=== PATIENT | female | born 1970 | race Hispanic/Latino ===

== ENCOUNTER 2017-07-26 20:37 | Emergency (ER) | payer MEDICARE ==
[2017-07-26] MEDS ORDERED: METOCLOPRAMIDE 10 MG/2 ML VIAL ONE (23:01)
[2017-07-26] MEDS ORDERED: ONDANSETRON HCL 4 MG/2 ML VIAL ONE (23:02)
[2017-07-26] MEDS ORDERED: DiphenhydrAMINE HCL 50 MG/ML VIAL ONE (23:02)
[2017-07-26 23:11] LABS: BASOPHILS % (AUTO) 0.4 % (0.0-5.0); EOSINOPHILS % (AUTO) 2.6 % (0.0-8.0); HEMATOCRIT 40.6 % (36-48); LYMPHOCYTES % (AUTO) 35.4 % (21.0-51.0); MEAN CORPUSCULAR HEMOGLOBIN 30.7 pg (27.0-33.0); MEAN CORPUSCULAR HGB CONC 34.4 g/dL (32.0-36.0); MEAN CORPUSCULAR VOLUME 89.3 fL (79-99); MONOCYTES % (AUTO) 7.8 % (3.0-13.0); NEUTROPHILS % (AUTO) 53.8 % (40.0-77.0); NUCLEATED RED BLOOD CELLS 0.1 % (0.0-0.19); PLATELET COUNT (AUTO) 296 K/uL (130-400); RED BLOOD CELL COUNT(AUTO) 4.55 MIL/uL (4.00-5.50); RED CELL DISTRIBUTION WIDTH 13.2 % (11.0-15.5)
[2017-07-26 23:15] LABS: APPEARANCE,URINE Clear (CLEAR); BILIRUBIN,URINE Negative (NEGATIVE); COLOR,URINE Yellow (YELLOW); GLUCOSE, URINE (UA) Negative (NEGATIVE); KETONES,URINE Negative (NEGATIVE); LEUKOCYTE ESTERASE ,URINE Negative (NEGATIVE); NITRATE,URINE Negative (NEGATIVE); OCCULT BLOOD,URINE Small (NEGATIVE); PROTEIN,URINE Negative (NEGATIVE); UROBILINOGEN,URINE 0.2 mg/dL (0.2-1.0)
[2017-07-26 23:18] LABS: CREATININE 0.8 mg/dL (0.5-1.5); POTASSIUM 3.9 mmol/L (3.5-5.1)
[2017-07-26 23:31] LABS: BACTERIA,URINE Rare /HPF (None Seen); MUCUS,URINE Few LPF (None Seen); RBC,URINE 0-1 /HPF (0-1); SQUAMOUS EPITHELIAL CELL,UR Moderate /LPF (0-2); WBC,URINE 0-1 /HPF (0-1)
== END 2017-07-27 00:25 | disposition home or self-care (01) ==
LOC: EDH 20:37
DX: G44.209 Tension-type headache, unspecified, not intractable (principal); R42 Dizziness and giddiness; I10 Essential (primary) hypertension; E11.9 Type 2 diabetes mellitus without complications
CPT/HCPCS: 36415; 70450; 80048; 81001; 84703; 85025; 96374; 96375; 99285; J1200; J2405; J2765

== ENCOUNTER 2018-10-25 14:15 | Inpatient (IN) | payer MEDICARE ==
[~2018-10-25] VITALS: Ht 170.2 cm; Wt 128.0 kg
[2018-10-25 12:45] VITALS: BP 149/70
[2018-10-25 13:22] LABS: BASOPHILS % (AUTO) 0.5 % (0.0-5.0); EOSINOPHILS % (AUTO) 1.1 % (0.0-8.0); HEMATOCRIT 43.5 % (36-48); LYMPHOCYTES % (AUTO) 30.5 % (21.0-51.0); MEAN CORPUSCULAR HEMOGLOBIN 30.3 pg (27.0-33.0); MEAN CORPUSCULAR HGB CONC 32.8 g/dL (32.0-36.0); MEAN CORPUSCULAR VOLUME 92.3 fL (79-99); MONOCYTES % (AUTO) 6.5 % (3.0-13.0); NEUTROPHILS % (AUTO) 61.4 % (40.0-77.0); PLATELET COUNT (AUTO) 284 K/uL (130-400); RED BLOOD CELL COUNT(AUTO) 4.72 MIL/uL (4.00-5.50); RED CELL DISTRIBUTION WIDTH 13.7 % (11.0-15.5); WHITE BLOOD COUNT (AUTO) 8.9 K/uL (4.8-10.8)
[2018-10-25 13:33] LABS: CREATININE 0.7 mg/dL (0.5-1.5); POTASSIUM 4.1 mmol/L (3.5-5.1)
[2018-10-25 13:36] LABS: INR 0.89 (0.85-1.15); PARTIAL THROMBOPLASTIN TIME 26.6 SEC (26.3-35.5); PROTHROMBIN TIME 9.4 SEC (9.6-11.6)
[2018-10-25 13:55] LABS: APPEARANCE,URINE Clear (CLEAR); BILIRUBIN,URINE Negative (NEGATIVE); COLOR,URINE Yellow (YELLOW); GLUCOSE, URINE (UA) Negative (NEGATIVE); KETONES,URINE Negative (NEGATIVE); LEUKOCYTE ESTERASE ,URINE Negative (NEGATIVE); NITRATE,URINE Negative (NEGATIVE); OCCULT BLOOD,URINE Small (NEGATIVE); PH,URINE 5.5 (5.0-8.0); PROTEIN,URINE Negative (NEGATIVE); UROBILINOGEN,URINE 0.2 mg/dL (0.2-1.0)
[2018-10-25 14:03] LABS: RBC,URINE 0-1 /HPF (0-1); WBC,URINE 0-1 /HPF (0-1)
[2018-10-25 14:04] LABS: BACTERIA,URINE Few /HPF (None Seen)
[~2018-10-25 14:15] MED LIST: ALBU8.5H8 IH; CALC-1009 PO; DEXAMETHASONE PO; FLUT15.88 NS; METF-446 PO; NORG1TAB65 PO; OMEG1CAP83 PO; SIMV20TA6 PO
--- NOTE | 2018-10-25 16:39 | NUR ---
UA INFORMED DR. SHAE OF ABNORMAL UA. NO ORDERS RECEIVED. PROCEED WITH PLANNED PROCEDURE.
[2018-10-26] VITALS (22 sets, daily range): BP systolic 124–153; BP diastolic 58–102
[2018-10-26] MEDS ORDERED: CEFAZOLIN 3GM /D5W 100ML 100 ML IV PRN (08:00)
[2018-10-26] MEDS ORDERED: SODIUM CHLORIDE 0.9% 1000ML 1,000 ML IV ONE (09:50)
[2018-10-26] MEDS: CEFAZOLIN SODIUM 1 GM VIAL ONE ×2 (10:13→12:00)
[2018-10-26] MEDS ORDERED: METOCLOPRAMIDE 10 MG/2 ML VIAL ONE (10:36)
[2018-10-26] MEDS ORDERED: CELECOXIB 200 MG CAP ONE (10:37)
[2018-10-26] MEDS ORDERED: KETOROLAC TROMETHAMINE 15MG/ML ONE (10:37)
[2018-10-26] MEDS ORDERED: ACETAMINOPHEN EXTRA STRENGTH 500 MG TABLET ONE (10:37)
[2018-10-26] MEDS ORDERED: OXYCODONE HCL 10 MG TAB.SR.12H PO ONE (10:37)
[2018-10-26] MEDS ORDERED: FENTANYL CITRATE PF 50 MCG/1 ML 2ML VIAL ONE ×2 (11:13→14:10)
[2018-10-26] MEDS ORDERED: ROCURONIUM 10MG/1ML SYR 10 MG/ML ML ONE ×2 (11:13→11:32)
[2018-10-26] MEDS ORDERED: PROPOFOL 10 MG/ML 20ML VIAL IV ONE ×2 (11:13→11:32)
[2018-10-26] MEDS ORDERED: SUCCINYLCHOLINE 200MG/10ML SYR ONE (11:13)
[2018-10-26] MEDS ORDERED: LIDOCAINE PF 2% 5ML ABBOJECT ONE (11:13)
[2018-10-26] MEDS ORDERED: ROPIVACAINE 0.5% 5MG/ML 30ML IJ ONE (11:29)
[2018-10-26] MEDS ORDERED: MIDAZOLAM HCL 1 MG/ML 2ML VIAL ONE (11:34)
[2018-10-26] MEDS ORDERED: CEFAZOLIN SODIUM 1 GM VIAL ONE (11:43)
[2018-10-26] MEDS ORDERED: TRANEXAMIC ACID 1000MG/10ML IV ONE ×2 (11:43→14:40)
[2018-10-26] MEDS ORDERED: EPHEDRINE SULFATE 50 MG/ML AMPULE ONE (12:07)
[2018-10-26] MEDS ORDERED: GLYCOPYRROLATE 1 MG/5 ML SYRINGE ONE (13:49)
[2018-10-26] MEDS ORDERED: NEOSTIGMINE 5MG/5ML SYR IV ONE (13:49)
[2018-10-26] MEDS ORDERED: KETOROLAC TROMETHAMINE 30MG/ML ONE (13:52)
[2018-10-26] MEDS ORDERED: ONDANSETRON HCL 4 MG/2 ML VIAL ONE (13:52)
[2018-10-26] MEDS ORDERED: TRAMADOL HCL 50 MG TABLET PO PRN (14:15)
[2018-10-26] MEDS ORDERED: POTASSIUM CHLORIDE 20MEQ/100ML 100 ML IV PRN (14:15)
[2018-10-26] MEDS ORDERED: DiphenhydrAMINE HCL 50 MG/ML VIAL IVP PRN (14:15)
[2018-10-26] MEDS ORDERED: POTASSIUM CHLORIDE 10% ELIXIR 20 MEQ/15 ML UDCUP PO PRN (14:15)
[2018-10-26] MEDS ORDERED: POTASSIUM CHLORIDE 20 MEQ ERTAB PO PRN (14:15)
[2018-10-26] MEDS ORDERED: FERROUS FUMARATE 324 MG TABLET PO PRN (14:15)
[2018-10-26] MEDS ORDERED: TEMAZEPAM 15 MG CAPSULE PO PRN (14:15)
[2018-10-26] MEDS ORDERED: CALCIUM CARBONATE 500 MG TABLET PO PRN (14:15)
[2018-10-26] MEDS ORDERED: ONDANSETRON HCL 4 MG/2 ML VIAL IVP PRN (14:15)
[2018-10-26] MEDS ORDERED: LIDOCAINE HCL-MPF 1% 2ML VIAL IVP PRN (14:15)
[2018-10-26] MEDS: OXYCODONE HCL 5 MG TAB PO PRN (15:51)
[2018-10-26] MEDS: ACETAMINOPHEN EXTRA STRENGTH 500 MG TABLET PO SCH ×2 (15:51→23:01)
[2018-10-26] MEDS: SODIUM CHLORIDE 0.9% 1000ML 1,000 ML IV SCH (16:00)
[2018-10-26] MEDS: INSULIN HUMULIN R 100 UNIT/ML 3ML SQ SCH ×2 (16:30→21:00)
--- NOTE | 2018-10-26 16:43 | NUR ---
DCP CM met with pt and family, discussed dc plans. Pt is deaf and mute, family uses sign language to communicate w/pt. Pt is semi-independent prior to surgery, lives at home with sister and mother. Has a shower chair, cane, and provider. Denies any other equipments/services. Feels safe to go back home, sister assist with transporation and needs as necessary. Pt agreeable for short term placement rehab. Sister signed [facility] for [facility], states will think about SNF if denied. Faxed order and clinicals to [facility], received confirmation. DC plan to IRU vs SNF. CM to cont to follow up. Addendum: 10/26/18 at 1647 by BRIGHT FARMER LVN CM Amended: Links added.
--- NOTE | 2018-10-26 16:48 | NUR ---
CM Note: Jg pending approval for standard walker no wheels and 3 in 1 chair Spoke to Art w/[facility], received request. Aware pt will dc to IRU/SNF first prior to home. Per Art will coordinate w/[facility] once pt closer to dc from facility. Primary nurse aware. CM to cont to follow up.
--- NOTE | 2018-10-26 16:49 | NUR ---
CM Note: [facility] pending acceptance Spoke to Brianna w/[facility] , received order and clinicals, will come eval pt. Pt pending acceptance. MOT semi-filled pending to be completed, flagged in chart. EMS filled out, pending to be faxed w/current date, primary nurse to call [facility] once MD cleared pt for DC. Primary nurse aware. CM to cont to follow up.
[2018-10-26] MEDS ORDERED: SUB TO ALBUTEROL 2.5MG/3ML NEBULES PER P&T IH PRN (18:30)
[2018-10-26] MEDS ORDERED: PREGABALIN 25 MG CAP ONE (19:24)
[2018-10-26] MEDS: CELECOXIB 200 MG CAP PO SCH (19:28)
[2018-10-26] MEDS: PREGABALIN 25 MG CAP PO SCH (19:28)
[2018-10-26] MEDS: CEFAZOLIN 3GM /D5W 100ML 100 ML IV SCH (19:28)
[2018-10-26] MEDS: SIMVASTATIN 20 MG TABLET PO SCH (19:28)
[2018-10-26] MEDS: FAMOTIDINE 20MG TAB 20 MG TAB PO SCH (19:28)
[2018-10-26] MEDS ORDERED: NORGESTIMATE ETHINYL ESTRADIOL PO SCH (21:00)
[2018-10-27] MEDS: CEFAZOLIN 3GM /D5W 100ML 100 ML IV SCH (02:50)
[2018-10-27] MEDS: OXYCODONE HCL 5 MG TAB PO PRN ×3 (02:51→13:41)
[2018-10-27] MEDS: SODIUM CHLORIDE 0.9% 1000ML 1,000 ML IV SCH ×2 (02:53→10:05)
[2018-10-27 03:32] VITALS: BP 125/68
[2018-10-27 05:01] LABS: HEMATOCRIT 36.6 % (36-48); MEAN CORPUSCULAR HEMOGLOBIN 30.1 pg (27.0-33.0); MEAN CORPUSCULAR HGB CONC 32.6 g/dL (32.0-36.0); MEAN CORPUSCULAR VOLUME 92.3 fL (79-99); PLATELET COUNT (AUTO) 228 K/uL (130-400); RED BLOOD CELL COUNT(AUTO) 3.96 MIL/uL (4.00-5.50); RED CELL DISTRIBUTION WIDTH 13.6 % (11.0-15.5); WHITE BLOOD COUNT (AUTO) 9.8 K/uL (4.8-10.8)
[2018-10-27 05:09] LABS: CREATININE 0.7 mg/dL (0.5-1.5); POTASSIUM 4.1 mmol/L (3.5-5.1)
[2018-10-27] MEDS: INSULIN HUMULIN R 100 UNIT/ML 3ML SQ SCH ×4 (06:05→20:29)
[2018-10-27] MEDS: ACETAMINOPHEN EXTRA STRENGTH 500 MG TABLET PO SCH ×3 (06:07→22:09)
[2018-10-27] MEDS: POLYETHYLENE GLYCOL 3350 17 GM POWD.PACK PO SCH (08:13)
[2018-10-27] MEDS: FAMOTIDINE 20MG TAB 20 MG TAB PO SCH ×2 (08:14→19:49)
[2018-10-27] MEDS: PREGABALIN 25 MG CAP PO SCH ×2 (08:14→19:49)
[2018-10-27] MEDS: CELECOXIB 200 MG CAP PO SCH ×2 (08:15→19:49)
[2018-10-27] MEDS: CALCIUM 600 + VITAMIN D 400 TABLET PO SCH (08:16)
[2018-10-27] MEDS: METFORMIN HCL 500 MG TABLET PO SCH ×2 (08:16→17:06)
[2018-10-27] MEDS: APIXABAN 2.5 MG TABLET PO SCH ×2 (08:16→19:49)
[2018-10-27] MEDS: FISH OIL 1000 MG/CAP PO SCH (08:16)
[2018-10-27] MEDS ORDERED: DEXAMETHASONE PO SCH (09:00)
[2018-10-27] MEDS: FLUTICASONE PROPIONATE 50MCG/SPRAY 16 GM BOTTLE NS SCH (09:00)
[2018-10-27] MEDS: TAMSULOSIN HCL 0.4 MG CAP.ER.24H PO SCH (09:00)
--- NOTE | 2018-10-27 10:23 | NUR ---
CM Not: [facility] Spoke to Brianna w/[facility]. Pt has acceptance. MOT filled out. EMS arranged and faxed. Primary nurse made aware. Pending MD clearance. CM to cont to follow up.
[2018-10-27 11:49] VITALS: BP 141/78
[2018-10-27 16:00] VITALS: BP 146/75
[2018-10-27] MEDS: KETOROLAC TROMETHAMINE 15MG/ML IV PRN (17:06)
[2018-10-27] MEDS: SIMVASTATIN 20 MG TABLET PO SCH (19:49)
[2018-10-27 19:50] VITALS: BP 150/60
--- NOTE | 2018-10-27 20:00 | NUR ---
assessment assessment performed with family and interpretor at bedside, dressing left knee with irving wrap, remove ble teds and keep scds in place, teach patient and plan of care , both verbalize understanding via teach back
[2018-10-27 23:48] VITALS: BP 151/76
[2018-10-28 03:50] VITALS: BP 137/71
[2018-10-28] MEDS: KETOROLAC TROMETHAMINE 15MG/ML IV PRN ×2 (04:00→11:29)
[2018-10-28] MEDS: INSULIN HUMULIN R 100 UNIT/ML 3ML SQ SCH ×4 (06:07→20:36)
[2018-10-28] MEDS: ACETAMINOPHEN EXTRA STRENGTH 500 MG TABLET PO SCH ×3 (06:39→22:15)
[2018-10-28 07:41] VITALS: BP 153/80
--- NOTE | 2018-10-28 08:30 | NUR ---
Patient awake, alert, oriented x 3. Sister at bedside to interpret for patient. Stated that she is having mild discomfort to lower abdominal area but she believes is because she hasn't had a bowel movement for the past 2 days. Will give Dulcolax suppository today. Dressing to her left knee is clean and dry, some swelling present on knee however, pedal pulses are strong on palpation. Teds on bilaterally.
[2018-10-28] MEDS ORDERED: BISACODYL 10 MG SUPP.RECT RC ONE (08:42)
[2018-10-28] MEDS: METFORMIN HCL 500 MG TABLET PO SCH ×2 (08:45→17:40)
[2018-10-28] MEDS: APIXABAN 2.5 MG TABLET PO SCH ×2 (08:45→19:59)
[2018-10-28] MEDS: CALCIUM 600 + VITAMIN D 400 TABLET PO SCH (08:45)
[2018-10-28] MEDS: CELECOXIB 200 MG CAP PO SCH ×2 (08:45→19:59)
[2018-10-28] MEDS: FAMOTIDINE 20MG TAB 20 MG TAB PO SCH ×2 (08:46→19:59)
[2018-10-28] MEDS: TAMSULOSIN HCL 0.4 MG CAP.ER.24H PO SCH (08:46)
[2018-10-28] MEDS: FISH OIL 1000 MG/CAP PO SCH (08:46)
[2018-10-28] MEDS: POLYETHYLENE GLYCOL 3350 17 GM POWD.PACK PO SCH (08:47)
[2018-10-28] MEDS: OXYCODONE HCL 5 MG TAB PO PRN ×2 (08:47→20:41)
[2018-10-28] MEDS: PREGABALIN 25 MG CAP PO SCH ×2 (08:47→19:59)
[2018-10-28] MEDS: FLUTICASONE PROPIONATE 50MCG/SPRAY 16 GM BOTTLE NS SCH (08:49)
--- NOTE | 2018-10-28 10:00 | NUR ---
Patient sitting up to the bedside chair after physical therapy, tolerating well. Mother at bedside.
[2018-10-28 11:25] VITALS: BP 151/73
--- NOTE | 2018-10-28 13:31 | NUR ---
DR. SHEA NOTIED THROUGH [facility]- NURSE THAT PT HAS BEING ACCEPTED TO SNF
[2018-10-28 16:13] VITALS: BP 125/72
--- NOTE | 2018-10-28 18:30 | NUR ---
Dressing change performed, incision clean with betadine, covered with 4X4 gauze and secured with Hypafix tape
--- NOTE | 2018-10-28 19:40 | NUR ---
Report was given to nurse Castelan at [facility]
--- NOTE | 2018-10-28 19:45 | NUR ---
[facility] informed of transfer
--- NOTE | 2018-10-28 19:50 | NUR ---
Medications reconciliation reviewed with Dr. Ryan and he approved most medications as listed.
[2018-10-28] MEDS: SIMVASTATIN 20 MG TABLET PO SCH (19:59)
[2018-10-28 20:00] VITALS: BP 116/53
--- NOTE | 2018-10-28 20:20 | NUR ---
Discharge instructions given to pt and her sister who interpreted for her
[2018-10-29 00:01] VITALS: BP 120/66
--- NOTE | 2018-10-29 00:17 | NUR ---
discharge discharge to [facility] via ems, accompanied by patients sister
[2018-10-29] MEDS ORDERED: BISACODYL 10 MG SUPP.RECT RC PRN (14:15)
== END 2018-10-29 00:21 | DRG 470 ==
LOC: DAHIP 10-26 08:47 → 4AH 10-26 14:31
PROVIDERS: ADMIT Orthopaedic Surgery; ATTEND Orthopaedic Surgery
PROC: 0SRD0J9 Replacement of Left Knee Joint with Synthetic Substitute, Cemented, Open Approach (ICD-10-PCS; principal; 2018-10-26 12:31)
DX: M17.12 Unilateral primary osteoarthritis, left knee (principal); Z68.41 Body mass index [BMI] 40.0-44.9, adult; E11.9 Type 2 diabetes mellitus without complications; E66.01 Morbid (severe) obesity due to excess calories; I10 Essential (primary) hypertension; G89.29 Other chronic pain; E78.5 Hyperlipidemia, unspecified; K21.9 Gastro-esophageal reflux disease without esophagitis; Z82.49 Family history of ischemic heart disease and other diseases of the circulatory system; Z83.3 Family history of diabetes mellitus
CPT/HCPCS: 36415; 80048; 81001; 82948; 84703; 85025; 85027; 85610; 85730; 87641; 97039; A4218; G0378; J0330; J0690; J1885; J2001; J2250; J2405; J2704; J2710; J2765; J2795; J3010; J3490; J7030; J7120

== ENCOUNTER 2020-04-22 10:00 | Inpatient (IN) | payer MEDICARE ==
[~2020-04-22] VITALS: Ht 165.1 cm; Wt 125.2 kg
[~2020-04-22 10:00] MED LIST changes: +FLUT15.845 NS; -FLUT15.88 NS; +SIMV-43 PO; -SIMV20TA6 PO
[2020-04-22 11:29] LABS: BASOPHILS % (AUTO) 0.4 % (0.0-5.0); EOSINOPHILS % (AUTO) 0.8 % (0.0-8.0); HEMATOCRIT 46.7 % (36-48); LYMPHOCYTES % (AUTO) 20.5 % (21.0-51.0); MEAN CORPUSCULAR HEMOGLOBIN 28.7 pg (27.0-33.0); MEAN CORPUSCULAR HGB CONC 31.3 g/dL (32.0-36.0); MEAN CORPUSCULAR VOLUME 91.9 fL (79-99); MONOCYTES % (AUTO) 6.3 % (3.0-13.0); NEUTROPHILS % (AUTO) 71.5 % (40.0-77.0); PLATELET COUNT (AUTO) 326 K/uL (130-400); RED BLOOD CELL COUNT(AUTO) 5.08 MIL/uL (4.00-5.50)
[2020-04-22 11:32] LABS: APPEARANCE,URINE Cloudy (CLEAR); BILIRUBIN,URINE Negative (NEGATIVE); COLOR,URINE Yellow (YELLOW); GLUCOSE, URINE (UA) Negative (NEGATIVE); KETONES,URINE Trace mg/dL (NEGATIVE); LEUKOCYTE ESTERASE ,URINE Negative (NEGATIVE); NITRATE,URINE Negative (NEGATIVE); OCCULT BLOOD,URINE Small (NEGATIVE); PROTEIN,URINE Negative (NEGATIVE); UROBILINOGEN,URINE 0.2 mg/dL (0.2-1.0)
[2020-04-22 11:47] LABS: BACTERIA,URINE Moderate /HPF (None Seen); MUCUS,URINE Few LPF (None Seen); RBC,URINE 0-1 /HPF (0-1); SQUAMOUS EPITHELIAL CELL,UR Moderate /HPF (0-2)
[2020-04-22 11:47] LABS: INR 0.91 (0.85-1.15); PROTHROMBIN TIME 9.9 SEC (9.6-11.6)
[2020-04-22 11:48] LABS: CREATININE 0.7 mg/dL (0.5-1.5); POTASSIUM 4.4 mmol/L (3.5-5.1)
[2020-04-26 09:44] VITALS: BP 153/76
[2020-04-29] VITALS (23 sets, daily range): BP systolic 111–185; BP diastolic 52–105
[2020-04-29] MEDS ORDERED: SODIUM CHLORIDE 0.9% 1000ML 1,000 ML IV ONE (07:29)
[2020-04-29] MEDS ORDERED: DEXA0.5E4 PO (07:56)
[2020-04-29] MEDS ORDERED: AUGMENTIN PO (07:56)
[2020-04-29] MEDS ORDERED: METOCLOPRAMIDE 10 MG/2 ML VIAL ONE (08:35)
[2020-04-29] MEDS ORDERED: ACETAMINOPHEN EXTRA STRENGTH 500 MG TABLET ONE (08:36)
[2020-04-29] MEDS ORDERED: CELECOXIB 200 MG CAP ONE (08:36)
[2020-04-29] MEDS ORDERED: KETOROLAC TROMETHAMINE 15MG/ML ONE (08:36)
[2020-04-29] MEDS ORDERED: TRANEXAMIC ACID 1000MG/10ML ONE ×2 (08:37→12:23)
[2020-04-29] MEDS ORDERED: DiphenhydrAMINE HCL 50 MG/ML VIAL ONE (09:25)
[2020-04-29] MEDS ORDERED: LIDOCAINE PF 2% 5ML ABBOJECT ONE (11:00)
[2020-04-29] MEDS ORDERED: SUCCINYLCHOLINE CHLORIDE 20 MG/ML 10 ML VIAL ONE (11:00)
[2020-04-29] MEDS ORDERED: DiphenhydrAMINE HCL 50 MG/ML VIAL IVP ONE (11:00)
[2020-04-29] MEDS ORDERED: ROCURONIUM 10MG/1ML SYR 10 MG/ML ML ONE (11:01)
[2020-04-29] MEDS ORDERED: FENTANYL CITRATE PF 50 MCG/1 ML 2ML VIAL ONE ×2 (11:01→14:49)
[2020-04-29] MEDS ORDERED: PROPOFOL 10 MG/ML 20ML VIAL IV ONE (11:01)
[2020-04-29] MEDS ORDERED: ROPIVACAINE 0.5% 5MG/ML 30ML IJ ONE (11:05)
[2020-04-29] MEDS ORDERED: CEFAZOLIN SODIUM 1 GM VIAL ONE ×4 (11:44)
[2020-04-29] MEDS ORDERED: MIDAZOLAM HCL 1 MG/ML 2ML VIAL ONE (12:17)
[2020-04-29] MEDS ORDERED: PHENYLEPHRINE HCL 10 MG/ML 1ML VIAL IV ONE (12:39)
[2020-04-29] MEDS ORDERED: SODIUM CHLORIDE 0.9% 10 ML VIAL ONE (12:39)
[2020-04-29] MEDS ORDERED: ONDANSETRON HCL 4 MG/2 ML VIAL IVP PRN (15:00)
[2020-04-29] MEDS ORDERED: POTASSIUM CHLORIDE 20 MEQ ERTAB PO PRN (15:00)
[2020-04-29] MEDS ORDERED: LIDOCAINE HCL-MPF 1% 2ML VIAL IV PRN (15:00)
[2020-04-29] MEDS: SODIUM CHLORIDE 0.9% 1000ML 1,000 ML IV SCH (15:00)
[2020-04-29] MEDS ORDERED: OXYCODONE HCL 5 MG TAB PO PRN (15:00)
[2020-04-29] MEDS ORDERED: DiphenhydrAMINE HCL 50 MG/ML VIAL IVP PRN (15:00)
[2020-04-29] MEDS: ACETAMINOPHEN EXTRA STRENGTH 500 MG TABLET PO SCH ×2 (15:00→23:00)
[2020-04-29] MEDS ORDERED: TEMAZEPAM 15 MG CAPSULE PO PRN (15:00)
[2020-04-29] MEDS ORDERED: POTASSIUM CHLORIDE 10% ELIXIR 20 MEQ/15 ML UDCUP PO PRN (15:00)
[2020-04-29] MEDS ORDERED: FERROUS FUMARATE 324 MG TABLET PO PRN (15:00)
[2020-04-29] MEDS ORDERED: CALCIUM CARBONATE 500 MG TABLET PO PRN (15:00)
[2020-04-29] MEDS ORDERED: KETOROLAC TROMETHAMINE 15MG/ML IV PRN (15:00)
[2020-04-29] MEDS ORDERED: TRAMADOL HCL 50 MG TABLET PO PRN (15:00)
[2020-04-29] MEDS ORDERED: POTASSIUM CHLORIDE 20MEQ/100ML 100 ML IV PRN (15:00)
[2020-04-29] MEDS ORDERED: NEOSTIGMINE 5MG/5ML SYR IV ONE (15:03)
[2020-04-29] MEDS ORDERED: GLYCOPYRROLATE 1 MG/5 ML SYRINGE ONE (15:03)
[2020-04-29] MEDS ORDERED: MEPERIDINE-PF 25 MG/ML SYG ONE (15:58)
[2020-04-29] MEDS ORDERED: LABETALOL 20 MG/4 ML DISP.SYRIN IV ONE (16:15)
[2020-04-29] MEDS: INSULIN HUMULIN R 100 UNIT/ML 3ML SQ SCH ×2 (16:30→20:43)
[2020-04-29] MEDS: PREGABALIN 25 MG CAP PO SCH (20:18)
[2020-04-29] MEDS: FAMOTIDINE 20MG TAB 20 MG TAB PO SCH (20:18)
[2020-04-29] MEDS: CELECOXIB 200 MG CAP PO SCH (20:18)
[2020-04-29] MEDS: SIMVASTATIN 20 MG TABLET PO SCH (20:18)
[2020-04-29] MEDS: CEFAZOLIN 3GM /D5W 100ML 100 ML IV SCH (20:18)
[2020-04-29] MEDS: AMOXICILLIN/POTASSIUM CLAV 875-125 TABLET PO SCH (20:18)
[2020-04-29] MEDS: OXYCODONE HCL 5 MG TAB PO PRN (20:32)
[2020-04-30] MEDS: SODIUM CHLORIDE 0.9% 1000ML 1,000 ML IV SCH ×2 (00:49→10:39)
[2020-04-30] MEDS: OXYCODONE HCL 5 MG TAB PO PRN ×4 (00:50→13:00)
[2020-04-30] MEDS: CEFAZOLIN 3GM /D5W 100ML 100 ML IV SCH (03:11)
[2020-04-30 04:00] VITALS: BP 140/80
[2020-04-30 04:01] LABS: HEMATOCRIT 36.8 % (36-48); MEAN CORPUSCULAR HEMOGLOBIN 29.1 pg (27.0-33.0); MEAN CORPUSCULAR HGB CONC 32.6 g/dL (32.0-36.0); MEAN CORPUSCULAR VOLUME 89.1 fL (79-99); RED BLOOD CELL COUNT(AUTO) 4.13 MIL/uL (4.00-5.50); RED CELL DISTRIBUTION WIDTH 13.5 % (11.0-15.5)
[2020-04-30 04:10] LABS: CREATININE 0.6 mg/dL (0.5-1.5); POTASSIUM 3.9 mmol/L (3.5-5.1)
[2020-04-30] MEDS: INSULIN HUMULIN R 100 UNIT/ML 3ML SQ SCH ×4 (05:36→21:00)
[2020-04-30] MEDS: METFORMIN HCL 500 MG TABLET PO SCH ×2 (08:02→17:15)
[2020-04-30] MEDS: ACETAMINOPHEN EXTRA STRENGTH 500 MG TABLET PO SCH ×3 (08:04→22:20)
[2020-04-30] MEDS: FAMOTIDINE 20MG TAB 20 MG TAB PO SCH ×2 (09:00→22:18)
[2020-04-30] MEDS ORDERED: DEXAMETHASONE PO SCH (09:00)
[2020-04-30] MEDS: FLUTICASONE PROPIONATE 50MCG/SPRAY 16 GM BOTTLE NS SCH (09:00)
[2020-04-30 10:14] VITALS: BP 152/82
[2020-04-30] MEDS: AMOXICILLIN/POTASSIUM CLAV 875-125 TABLET PO SCH ×2 (10:26→22:18)
[2020-04-30] MEDS: POLYETHYLENE GLYCOL 3350 17 GM POWD.PACK PO SCH (10:26)
[2020-04-30] MEDS: APIXABAN 2.5 MG TABLET PO SCH ×2 (10:27→22:17)
[2020-04-30] MEDS: CELECOXIB 200 MG CAP PO SCH ×2 (10:27→22:18)
[2020-04-30] MEDS: PREGABALIN 25 MG CAP PO SCH ×2 (10:34→22:18)
[2020-04-30 12:20] VITALS: BP 156/78
[2020-04-30 16:58] VITALS: BP 134/87
[2020-04-30 20:07] VITALS: BP 143/67
[2020-04-30] MEDS: SIMVASTATIN 20 MG TABLET PO SCH (22:18)
[2020-04-30 23:45] VITALS: BP 137/69
[2020-05-01 04:24] VITALS: BP 130/68
[2020-05-01] MEDS: INSULIN HUMULIN R 100 UNIT/ML 3ML SQ SCH ×2 (05:41→11:30)
[2020-05-01] MEDS: ACETAMINOPHEN EXTRA STRENGTH 500 MG TABLET PO SCH ×2 (06:17→15:00)
[2020-05-01 08:31] VITALS: BP 155/80
[2020-05-01] MEDS: FLUTICASONE PROPIONATE 50MCG/SPRAY 16 GM BOTTLE NS SCH (09:00)
[2020-05-01] MEDS: OXYCODONE HCL 5 MG TAB PO PRN ×2 (09:05→16:04)
[2020-05-01] MEDS: APIXABAN 2.5 MG TABLET PO SCH (09:06)
[2020-05-01] MEDS: AMOXICILLIN/POTASSIUM CLAV 875-125 TABLET PO SCH (09:06)
[2020-05-01] MEDS: PREGABALIN 25 MG CAP PO SCH (09:06)
[2020-05-01] MEDS: METFORMIN HCL 500 MG TABLET PO SCH (09:07)
[2020-05-01] MEDS: FAMOTIDINE 20MG TAB 20 MG TAB PO SCH (09:07)
[2020-05-01] MEDS: CELECOXIB 200 MG CAP PO SCH (09:07)
[2020-05-01] MEDS: POLYETHYLENE GLYCOL 3350 17 GM POWD.PACK PO SCH (09:59)
[2020-05-01 11:36] VITALS: BP 133/74
[2020-05-01] MEDS ORDERED: APIX2.5T PO (15:25)
[2020-05-01] MEDS ORDERED: HYDR-4457 PO (15:25)
[2020-05-02] MEDS ORDERED: BISACODYL 10 MG SUPP.RECT RC PRN (15:00)
== END 2020-05-01 16:55 | disposition home health service (06) | DRG 470 ==
LOC: EDSTATUS 10:00 → DAHIP 04-29 06:50 → 3AH 04-29 16:42
PROVIDERS: ADMIT Orthopaedic Surgery; ATTEND Orthopaedic Surgery
PROC: 0SRC0J9 Replacement of Right Knee Joint with Synthetic Substitute, Cemented, Open Approach (ICD-10-PCS; principal; 2020-04-29 12:16)
DX: M17.11 Unilateral primary osteoarthritis, right knee (principal); Z68.42 Body mass index [BMI] 45.0-49.9, adult; E66.01 Morbid (severe) obesity due to excess calories; G89.29 Other chronic pain; I10 Essential (primary) hypertension; R26.89 Other abnormalities of gait and mobility; K21.9 Gastro-esophageal reflux disease without esophagitis; E78.5 Hyperlipidemia, unspecified; Z96.652 Presence of left artificial knee joint; Z20.828 Contact with and (suspected) exposure to other viral communicable diseases; Z95.0 Presence of cardiac pacemaker; Z83.3 Family history of diabetes mellitus; Z82.49 Family history of ischemic heart disease and other diseases of the circulatory system
CPT/HCPCS: 36415; 80048; 81001; 82948; 85025; 85027; 85610; 87088; 87641; 88305; 88311; 97039; A4606; G0378; J0330; J0690; J1200; J1885; J2001; J2175; J2250; J2370; J2405; J2704; J2710; J2765; J2795; J3010; J3490; J7030; J7120; U0003

== ENCOUNTER → 2022-04-01 | Outpatient (CLI) | payer MEDICARE ==
[~2022-04-01] MED LIST changes: -ALBU8.5H8 IH; +APIX2.5T PO; +AUGMENTIN PO; -CALC-1009 PO; +DEXA0.5E4 PO; -DEXAMETHASONE PO; +HYDR-4457 PO; -NORG1TAB65 PO; -OMEG1CAP83 PO
== END | disposition home or self-care (01) ==
LOC: RAH 03-24 08:47
PROVIDERS: ATTEND Internal Medicine Gastroenterology
DX: K76.0 Fatty (change of) liver, not elsewhere classified (principal); R10.13 Epigastric pain
CPT/HCPCS: 76700

== ENCOUNTER 2024-01-09 16:18 | Emergency (ER) | payer MEDICARE ==
[~2024-01-09] VITALS: Ht 165.1 cm; Wt 127.0 kg
[2024-01-09 16:59] LABS: BASOPHILS # (AUTO) 0.03 K/uL (0.00-0.20); BASOPHILS % (AUTO) 0.3 % (0.0-5.0); EOSINOPHILS # (AUTO) 0.16 K/uL (0.00-0.70); EOSINOPHILS % (AUTO) 1.7 % (0.0-8.0); HEMATOCRIT 50.4 % (36-48); IMMATURE GRANULOCYTE ABSOLUTE 0.03 K/uL (0-1); LYMPHOCYTES # (AUTO) 2.2 K/uL (1.0-4.8); LYMPHOCYTES % (AUTO) 24.1 % (21.0-51.0); MEAN CORPUSCULAR HEMOGLOBIN 28.3 pg (27.0-33.0); MEAN CORPUSCULAR HGB CONC 31.3 g/dL (32.0-36.0); MEAN CORPUSCULAR VOLUME 90.3 fL (79-99); MONOCYTES # (AUTO) 0.7 K/uL (0.1-1.0); MONOCYTES % (AUTO) 7.2 % (3.0-13.0); NEUTROPHILS # (AUTO) 6.1 K/uL (1.8-7.7); NEUTROPHILS % (AUTO) 66.4 % (40.0-77.0); PLATELET COUNT (AUTO) 310 K/uL (130-400); RED BLOOD CELL COUNT(AUTO) 5.58 MIL/uL (4.00-5.50); RED CELL DISTRIBUTION WIDTH 14.1 % (11.0-15.5); WHITE BLOOD COUNT (AUTO) 9.2 K/uL (4.8-10.8)
[2024-01-09 17:14] LABS: ALBUMIN 3.6 g/dL (3.5-5.0); BILIRUBIN,TOTAL 0.3 mg/dL (0.2-1.0)
[2024-01-09 17:19] LABS: APPEARANCE,URINE CLEAR (CLEAR); BILIRUBIN,URINE NEGATIVE (NEGATIVE); COLOR,URINE LIGHT-YELLOW (YELLOW); GLUCOSE, URINE (UA) >=1000 mg/dL (NEGATIVE); KETONES,URINE NEGATIVE (NEGATIVE); LEUKOCYTE ESTERASE ,URINE NEGATIVE Leu/uL (NEGATIVE); NITRATE,URINE NEGATIVE (NEGATIVE); PROTEIN,URINE NEGATIVE (NEGATIVE); UROBILINOGEN,URINE 0.2 mg/dL (0.2-1.0)
[2024-01-09 17:21] LABS: ADD UA MICROSCOPIC YES
[2024-01-09 17:39] LABS: BACTERIA,URINE FEW /HPF (None Seen); MUCUS,URINE RARE LPF (None Seen); SQUAMOUS EPITHELIAL CELL,UR RARE /HPF (0-2)
[2024-01-09 18:55] LABS: SARS-CoV-2, RNA, NAAT NEGATIVE SARS CoV-2 (NEGATIVE)
[2024-01-09 19:00] LABS: INFLUENZA TYPE A Negative For Type A (NEGATIVE); INFLUENZA TYPE B Negative For Type B (NEGATIVE)
[2024-01-09] MEDS: KETOROLAC 30MG VIAL (30MG/ML) IM ONE (20:16)
[2024-01-09] MEDS ORDERED: ONDA-243 PO (21:14)
[2024-01-09] MEDS ORDERED: FAMO20TA8 PO (21:14)
[2024-01-09] MEDS ORDERED: HYOS0.124 SL (21:14)
[2024-01-09] MEDS: LIDOCAINE HCL 2% VISCOUS 15 ML UDCUP PO ONE (21:42)
[2024-01-09] MEDS: MAG/ALUM/SIMETH 30 ML UDCUP PO ONE (21:42)
[2024-01-09] MEDS: DICYCLOMINE HCL 10 MG/5 ML ML PO ONE (21:43)
[2024-01-09 22:18] VITALS: BP 120/70; PULSE 60; RESP 18; O2SAT 99
== END 2024-01-09 22:27 | disposition home or self-care (01) ==
LOC: EDH 16:18
DX: K29.70 Gastritis, unspecified, without bleeding (principal); K21.9 Gastro-esophageal reflux disease without esophagitis; R10.11 Right upper quadrant pain; E11.9 Type 2 diabetes mellitus without complications; E78.00 Pure hypercholesterolemia, unspecified; I10 Essential (primary) hypertension; Z20.822 Contact with and (suspected) exposure to COVID-19
CPT/HCPCS: 36415; 74176; 76705; 80053; 81001; 83690; 85025; 87635; 87804; J1885